=== PATIENT | female | born 1970 | race Caucasian/White ===

== ENCOUNTER 2017-11-15 15:58 | Emergency (ER) | payer BC ==
[2017-11-15 16:08] VITALS: BP 140/78
--- NOTE | 2017-11-15 16:43 | UC ---
Respiratory Complaint HPI - HPI Summary HPI Summary: 47yo WF c/o cough with chest congestion x 3 weeks associated with productive yellow green sputum. Sputum quality is worsening with time, denies f/c - History of Current Complaint Chief Complaint: UCRespiratory Stated Complaint: cough, AND CHEST CONGESTION Time Seen by Provider: 11/15/17 16:29 Hx Obtained From: Patient Hx Last Menstrual Period: 10/31/17 Onset/Duration: Gradual Onset, Lasting Days Severity Initially: Moderate Severity Currently: Moderate Character: Cough: Productive Associated Signs And Symptoms: Negative: Dyspnea, Fever, Chills, Wheezing - Allergies/Home Medications Allergies/Adverse Reactions: Allergies Allergy/AdvReac Type Severity Reaction Status Date / Time No Known Allergies Allergy Verified 11/15/17 16:08 Home Medications: Home Medications [id number] [Nyquil Severe Cold/Flu 5-6.25-10-325 mg/15Ml] 1 liq PO ONCE PRN 11/15/17 [History Confirmed 11/15/17] PMH/Surg Hx/FS Hx/Imm Hx - Surgical History Surgical History: None - Social History Alcohol Use: Occasionally Substance Use Type: Heroin Smoking Status (MU): Never Smoked Tobacco - Immunization History Most Recent Influenza Vaccination: 2012 Review of Systems Constitutional: Negative Skin: Negative Eyes: Negative ENT: Negative Respiratory: Cough - productive Cardiovascular: Negative Gastrointestinal: Negative Genitourinary: Negative Motor: Negative Neurovascular: Negative Musculoskeletal: Negative Neurological: Negative Psychological: Negative Is Patient Immunocompromised?: No All Other Systems Reviewed And Are Negative: Yes Physical Exam Triage Information Reviewed: Yes Appearance: No Pain Distress Vital Signs: Initial Vital Signs Temp 37.1 C 11/15/17 16:02 Pulse 80 11/15/17 16:02 Resp 18 11/15/17 16:02 BP 140/78 11/15/17 16:02 Pulse Ox 100 11/15/17 16:02 Eye Exam: Normal ENT Exam: Normal Dental Exam: Normal Neck exam: Normal Neck: Positive: 1 Respiratory Exam: Normal Respiratory: Positive: Lungs clear, Other: - MILD coarse BS B/L. Negative: Normal breath sounds, No respiratory distress, No accessory muscle use, Accessory muscle use Cardiovascular Exam: Normal Abdominal Exam: Normal Musculoskeletal Exam: Normal Neurological Exam: Normal Psychological Exam: Normal Skin Exam: Normal UC Diagnostic Evaluation - Laboratory O2 Sat by Pulse Oximetry: 100 Respiratory Course/Dx - Course Course Of Treatment: CXR with mild ferny-bronchial cuffing without infiltrates, will treat for bronchitis - Differential Dx/Diagnosis Provider Diagnoses: Bronchitis Discharge - Discharge Plan Condition: Stable Disposition: HOME Prescriptions: Azithromycin TAB* [Zithromax TAB (Z-MING) 250 mg #6 tabs] 2 tab PO .TODAY, THEN 1 DAILY #1 ming Patient Education Materials: Acute Bronchitis (ED) Referrals: Harry Echavarria MD [Primary Care Provider] -
--- NOTE | 2017-11-15 17:02 | RAD ---
INDICATION: Bronchitis for 3 weeks. Shortness of breath. Central chest pain. Cough. COMPARISON: No relevant prior exams available on the [facility] for comparison. TECHNIQUE: Dual energy PA and routine lateral views of the chest were obtained. REPORT: Clear lungs and pleural spaces. Negative for pneumothorax. The heart, pulmonary vasculature, and mediastinal contours are unremarkable. Unremarkable osseous structures and soft tissue contours. IMPRESSION: No evidence for pneumonia. No evidence for acute intrathoracic disease.
== END 2017-11-15 17:21 | disposition home or self-care (01) ==
LOC: UCEAST 15:58
DX: J40 Bronchitis, not specified as acute or chronic (principal)
CPT/HCPCS: 71046; 99212; G0463

== ENCOUNTER 2018-07-17 17:34 | Emergency (ER) | payer BC ==
[2018-07-17] MEDS ORDERED: Lidocaine 1%* 5 ML VIAL INJ ONE (17:39)
[2018-07-17 17:46] VITALS: BP 152/90
[2018-07-17] MEDS ORDERED: Tetanus-Diptheria Toxoids* 0.5 ML SYRINGE IM ONE (17:47)
--- NOTE | 2018-07-17 17:53 | ED ---
Laceration/Wound HPI - HPI Summary HPI Summary: 47-year-old female presents with laceration to left middle finger today. She was trying to break up a dog fit and sustained laceration. She has deformity noted to the distal phalanx of left middle finger. She admits to numbness and tingling. She admits to extreme amount of pain. She is right-handed. 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 Tetanus is over 10 years old. No medical conditions. - History of Current Complaint Stated Complaint: BITE ON HAND Time Seen by Provider: 07/17/18 17:37 Hx Last Menstrual Period: 10/31/17 Pain Intensity: 7 - Allergy/Home Medications Allergies/Adverse Reactions: Allergies Allergy/AdvReac Type Severity Reaction Status Date / Time codeine Allergy Severe Nausea And Verified 07/17/18 18:20 Vomiting PMH/Surg Hx/FS Hx/Imm Hx Endocrine/Hematology History: Denies: Hx Anticoagulant Therapy Respiratory History: Denies: Hx Asthma - Surgical History Surgery Procedure, Year, and Place: denies Infectious Disease History: No Infectious Disease History: Denies: Traveled Outside the [place] in Last 30 Days - Family History Known Family History: Negative: Diabetes - Social History Alcohol Use: Occasionally Substance Use Type: Reports: None Hx Tobacco Use: No Smoking Status (MU): Never Smoked Tobacco Review of Systems Negative: Fever Negative: Chest Pain Negative: Shortness Of Breath Positive: Other - lac to finger All Other Systems Reviewed And Are Negative: Yes Physical Exam Triage Information Reviewed: Yes Vital Signs On Initial Exam: Initial Vitals Temp Pulse Resp BP Pulse Ox 98 F 111 16 152/90 96 07/17/18 17:41 07/17/18 17:41 07/17/18 17:41 07/17/18 17:41 07/17/18 17:41 Vital Signs Reviewed: Yes Appearance: Positive: Well-Appearing Skin: Positive: Warm, Dry, Other - lateral 1cm superficial laceration to distal phalanx, 2cm by 1/2cm medial to distal phalanx left middle finger Head/Face: Positive: Normal Head/Face Inspection Eyes: Positive: Normal, Conjunctiva Clear ENT: Positive: Pharynx normal Respiratory/Lung Sounds: Positive: Clear to Auscultation, Breath Sounds Present Cardiovascular: Positive: Normal, RRR Musculoskeletal: Positive: Other - swan neck deformity to left middle finger, capillary refill<2 secs, unable to bend finger at DIP Neurological: Positive: Normal Psychiatric: Positive: Normal Procedures - Laceration/Wound Repair 1 Location: Other - left middle finger Description: Irregular Anesthesia: Digital, 1.0% Length, Depth and Shape: 2cm by 1/2cm laceration Irrigated w/ Saline (ccs): 500 Laceration/Wound Explored: contaminated - hair removed Closure: Single Layer Suture Type: Prolene Sterile Dressing Applied?: No - telfa, finger splint Diagnostics - Vital Signs Vital Signs Temp Pulse Resp BP Pulse Ox 07/17/18 17:41 98 F 111 16 152/90 96 - Laboratory Lab Statement: Any lab studies that have been ordered have been reviewed, and results considered in the medical decision making process. 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 PLEASE CORRELATE TO PHYSICAL EXAMINATION. Radiology Interpretation Completed By: Radiologist Laceration Repair Course/Dx - Course Course Of Treatment: 47-year-old female presents with laceration to left middle finger today. She was trying to break up a dog fit and sustained laceration. She has deformity noted to the distal phalanx of left middle finger. She admits to numbness and tingling. She admits to extreme amount of pain. She is right-handed. 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 Tetanus is over 10 years old. No medical conditions. on exam has deformity to left middle finger, neurovascular intact. gave tetanus. has swan neck deformity. unable to bend at DIP. no fx per xray. spoke with dr rutherford said to sew external and place in splint and have follow up with ortho tomorrow. will place on augmentin due to dog bite. did not sew superficial wound as is dog bite and has high rate of infection. other wound placed 4 sutures. placed in finger splint. patient understand and agrees with plan. - Differential Dx Differental Diagnoses: Avulsion, Fracture, Laceration - Clinical Impression Provider Diagnoses: Laceration of left index finger, Tendon injury, Dog bite Discharge - Sign-Out/Discharge Documenting (check all that apply): Patient Departure All imaging exams completed and their final reports reviewed: Yes - Discharge Plan Condition: Good Disposition: HOME Prescriptions: Amoxicillin/Clavulanate TAB* [Augmentin TAB 875*] 875 mg PO BID #9 tab oxyCODONE/Acetamin 5/325 MG* [Percocet 5/325 TAB*] 1 tab PO Q6H PRN #8 tab MDD 4 PRN Reason: Pain Patient Education Materials: Care For Your Stitches (ED) Referrals: Harry Echavarria MD [Primary Care Provider] - Nell Rome MD [Medical Doctor] - Additional Instructions: Keep area in splint Keep area clean and dry for 48 hours call ortho office tomorrow Take Tylenol or ibuprofen for pain every 6 hours, use oxycodone every 6 hours as needed for pain take augmentin twice a day for 5 days Return to ED or primary for suture removal in 8-10 days Return to ED if develop signs of infection such as fever, spreading redness, or pus formation - Billing Disposition and Condition Condition: GOOD Disposition: Home
[2018-07-17] MEDS ORDERED: Amoxicillin/Clavulanate TAB* 875 MG PO ONE (18:00)
--- NOTE | 2018-07-17 18:07 | RAD ---
INDICATION: Left middle finger pain after a dog bite COMPARISON: None. TECHNIQUE: 3 views of the left middle finger were obtained. FINDINGS: Depicted best on the lateral view there is approximately 45 degrees of flexion at the distal left middle finger interphalangeal joint. Bones are otherwise intact and appropriately aligned. 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 PLEASE CORRELATE TO PHYSICAL EXAMINATION.
[2018-07-17] MEDS ORDERED: Tetan/Diph/Pertus SYR(Tdap)* 0.5 ML SYR(BOOSTRIX) use SYR IM ONE (18:24)
[2018-07-17] MEDS ORDERED: Lidocaine 1%* 5 ML VIAL ONE (18:27)
== END 2018-07-17 18:51 | disposition home or self-care (01) ==
LOC: UCEAST 17:34
DX: S61.211A Laceration without foreign body of left index finger without damage to nail, initial encounter (principal); S56.10 Unspecified injury of flexor muscle, fascia and tendon of other and unspecified finger at forearm level; W54.0XXA Bitten by dog, initial encounter; Y93.89 Activity, other specified; Y92.9 Unspecified place or not applicable; Z23 Encounter for immunization; Z88.5 Allergy status to narcotic agent
CPT/HCPCS: 12001; 73140; 90471; 90715; 99212; A9270-GY; G0463

== ENCOUNTER 2018-08-08 09:20 | Day surgery (SDC) | payer BC ==
[~2018-08-08 09:20] MED LIST: Buffered Lidocaine 0.9% SYRIN* 5 ML/SYR SYRINGE INTRADERM ONE; Famotidine IV* 10 MG/ML 2 ML (20 mg) IV ONE; Famotidine IV* 10 MG/ML 2 ML (20 mg) ONE
[2018-08-08] MEDS ORDERED: ceFAZolin 2 GM in NS PREMIX(*) 2 GM/100 ML BAG IVPB ONE (09:29)
[2018-08-08] MEDS ORDERED: Dexamethasone IV* 4 MG/ML 1 ML (4 MG) ONE (10:40)
[2018-08-08] MEDS ORDERED: Midazolam* 1 MG/ML 5 ML VIAL (5 MG) ONE (10:40)
[2018-08-08] MEDS ORDERED: fentaNYL* 50 MCG/ML 2 ML VIAL (100 MCG VIAL) ONE (10:40)
[2018-08-08] MEDS ORDERED: Ondansetron INJ* 2 MG/ML VIAL ONE (10:40)
[2018-08-08] MEDS ORDERED: Lidocaine 2% PF * 5 ML VIAL ONE (10:40)
[2018-08-08] MEDS ORDERED: Propofol* 10 MG/ML 20 ML BTL IV PUSH ONE ×2 (10:40→12:24)
[2018-08-08] MEDS ORDERED: Ketorolac INJ* 30 MG/ML 1 ML VIAL ONE (10:41)
[2018-08-08] MEDS ORDERED: HYDROmorphone INJ1* 1 MG/ML SYRINGE IV PRN (11:31)
[2018-08-08] MEDS ORDERED: HYDROcodone/ACETAMIN 5-325 MG* 1 TAB PO PRN (11:31)
[2018-08-08] MEDS ORDERED: DiMENhydriNATE IV* 50 MG/ML VIAL IV PUSH PRN (11:31)
[2018-08-08] MEDS ORDERED: Naloxone* 0.4 MG/ML 1 ML VIAL IV PRN (11:31)
[2018-08-08] MEDS ORDERED: Acetaminophen TAB* 325 MG PO PRN (11:31)
[2018-08-08] MEDS ORDERED: ROPIVACAINE 5 MG/ML 30 ML BTL (0.5%) ONE (11:33)
[2018-08-08] MEDS ORDERED: DiMENhydriNATE IV* 50 MG/ML VIAL ONE (11:40)
[2018-08-08] MEDS ORDERED: Midazolam* 1 MG/ML 2 ML VIAL (2 MG) ONE (12:11)
[2018-08-08 13:03] VITALS: BP 117/68
--- NOTE | 2018-08-09 03:43 | OP ---
DATE OF OPERATION: 08/08/18 - [facility] DATE OF : 74 SURGEON: Vito Suarez MD MILK POWDER GRINDER: MIRTA Ramirez. ANESTHESIOLOGIST: Dr. Doe. ANESTHESIA: Local MAC. PRE-OP DIAGNOSIS: Left subacute mallet finger. POST-OP DIAGNOSIS: Left subacute mallet finger. OPERATIVE PROCEDURE: Open repair of left terminal extensor tendon with Arthrex NanoSuture anchor and distal interphalangeal joint extension pinning. INDICATIONS: Jeffrey is 47 years old. She had a dog bite and had a torquing injury on the finger. She had a little bit of infection initially around the area of the fingertip, and so we cannot really splint her; we cannot really initiate any treatment for the mallet finger. It has now been some time that she is off the antibiotics, the infection has resolved, but she is left with a very severe mallet finger deformity with some associated PIP joint hyperextension and swan neck deformity. We had talked about risk and benefits. Given the extent of the deformity, I had recommended surgical repair. She understands risk of infection. ESTIMATED BLOOD LOSS: 2 mL. COMPLICATIONS: None. FINDINGS: See above and below. DESCRIPTION OF PROCEDURE: Jeffrey was seen in the preoperative holding area. The correct site, side, and procedure were identified. We came back to the operating room where the arm was prepped and draped in the usual fashion and a time-out was performed. I had already anesthetized the finger with a digital block. I exsanguinated the extremity and the tourniquet was inflated to 250 mmHg. I made an H-shaped incision over the dorsum of the DIP joint. Full-thickness flaps were raised off the terminal extensor tendon. There was scar tissue at the end of the tendon. This was debrided off with the Barrow blade. I then went ahead and performed a tenolysis and mobilized the terminal extensor tendon. I went ahead and trimmed it to a nice clean edge again with the Barrow blade. I then placed the DIP joint in neutral to very slight hyperextension and placed one 0.045 K- Wire across the DIP joint down to the subchondral bone of the middle phalanx. This was clipped below the skin. I then placed one Arthrex NanoSuture anchor in the base of the distal phalanx. The 3-0 FiberWire suture was then whipstitched up into the tendon and tendon was pulled down to the bone and 3-0 FiberWire was tied off. I then augmented this with 2 [id number] 3-0 FiberWire sutures showing excellent advancement of the tendon and securing the tendon nicely. The tendon was very nicely opposed to the base of the distal phalanx and to the adjacent soft tissue. I went ahead and flexed the PIP joint multiple times. There is no gapping at the tendon at the tendon repair site. I therefore irrigated out the wound copiously. Skin was closed with 4-0 nylon suture. The wound was appropriately dressed and a Clamshell AlumaFoam splint was applied. The tourniquet had been released. The patient was then taken to the recovery room in stable condition. [id number]/[facility] #: [id number] CARMEN
--- NOTE | 2018-08-09 18:01 | RAD ---
INDICATION: Intraoperative fluoroscopy for hand surgery. Technique: 5 seconds of?fluoroscopy?was provided?for the physician proceduralist. REPORT: Spot image documents a percutaneous wire traversing the distal interphalangeal joint. IMPRESSION: Procedural control films. CPT II Codes: G9500
== END 2018-08-08 13:11 | disposition home or self-care (01) ==
LOC: OREAST 09:20
PROVIDERS: ATTEND Orthopaedic Surgery Hand Surgery
DX: M20.012 Mallet finger of left finger(s) (principal); W54.0XXA Bitten by dog, initial encounter; Y92.9 Unspecified place or not applicable
CPT/HCPCS: 76000; 81025; C1713; C1776; J0690; J1100; J1240; J1885; J2250; J2405; J2704; J2795; J3010